=== PATIENT | female | born 2000 | race Caucasian/White ===

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

== ENCOUNTER 2022-03-10 09:48 | Emergency (ER) | payer BC, OTHER ==
[~2022-03-10] VITALS: Ht 162.6 cm; Wt 72.6 kg
[2022-03-10] MEDS ORDERED: KETOROLAC TROMETHAMINE 15 MG INJ ONE (10:12)
[2022-03-10] MEDS ORDERED: KETOROLAC TROMETHAMINE 15 MG INJ IM ONE (10:15)
[2022-03-10] MEDS ORDERED: IBUP-1955 PO (11:20)
--- NOTE | 2022-03-10 11:30 | NUR ---
Pt states feeling better and her chest pain decreased.
--- NOTE | 2022-03-10 11:36 | NUR ---
Dr Burden at the bedside for MSE.
[2022-03-10 11:40] VITALS: BP 115/61
== END 2022-03-10 11:40 | disposition home or self-care (01) ==
LOC: ER 09:48
DX: R07.89 Other chest pain (principal); Z86.16 Personal history of COVID-19; F17.290 Nicotine dependence, other tobacco product, uncomplicated
CPT/HCPCS: 71045; 93005; 96372; 99284; 99406; J1885; A4663

== ENCOUNTER 2022-05-22 08:59 | Emergency (ER) | payer BC, OTHER ==
[~2022-05-22] VITALS: Ht 162.6 cm; Wt 74.8 kg
[~2022-05-22 08:59] MED LIST changes: +IBUP-1955 PO
--- NOTE | 2022-05-22 09:25 | NUR ---
PATIENT WAS MSE BY DR GROSSMAN IN ROOM 03A.
[2022-05-22] MEDS ORDERED: AMOXicillin 250 MG CAPSULE PO ONE (10:30)
--- NOTE | 2022-05-22 10:35 | NUR ---
DR GROSSMAN SPOKE WITH ELIZABETH MADE HER AWARE OF TEST RESULTS.
[2022-05-22] MEDS ORDERED: AMOX500C2 PO (10:36)
[2022-05-22] MEDS ORDERED: DEXAMETHASONE 4 MG TABLET ONE (10:38)
[2022-05-22] MEDS ORDERED: AMOXIcillin 500 MG CAPSULE ONE (10:38)
[2022-05-22] MEDS ORDERED: DEXAMETHASONE 0.5 MG TABLET PO ONE (10:45)
[2022-05-22 10:52] VITALS: BP 116/73
== END 2022-05-22 10:53 | disposition home or self-care (01) ==
LOC: ER 08:59
DX: J02.0 Streptococcal pharyngitis (principal); B95.0 Streptococcus, group A, as the cause of diseases classified elsewhere; Z20.822 Contact with and (suspected) exposure to COVID-19; Z86.16 Personal history of COVID-19
CPT/HCPCS: 36415; 86403; 87426; 99283; C9803; J8540; U0003; A4663